=== PATIENT | female | born 1980 | race Caucasian/White ===

== ENCOUNTER 2019-10-22 22:34 | Emergency (ER) | payer SELFPAY ==
[~2019-10-22] VITALS: Ht 160 cm; Wt 82.6 kg
[2019-10-23] LABS: BASOPHILS % (AUTO) 1 % (0-1); EOSINOPHILS # (AUTO) 0.37 x10^3/uL (0-0.4); EOSINOPHILS % (AUTO) 3 % (1-7); LYMPHOCYTES # (AUTO) 3.47 x10^3/uL (1-3.4); LYMPHOCYTES % (AUTO) 31 % (22-44); MD NO; MEAN CORPUSCULAR HEMOGLOBIN 30.5 pg (27.0-34.8); MEAN CORPUSCULAR HGB CONC 33.1 g/dL (32.4-35.8); MEAN PLATELET VOLUME 8.5 fL (7.4-10.4); MONOCYTES # (AUTO) 0.92 x10^3/uL (0.2-0.8); MONOCYTES % (AUTO) 8 % (2-9); NEUTROPHILS % (AUTO) 56 % (42-75); PLATELET COUNT 307 x10^3/uL (130-400); RED BLOOD COUNT 4.64 x10^6/uL (3.82-5.3); RED CELL DISTRIBUTION WIDTH 14.1 % (9.6-15.2)
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
[2019-10-23 00:09] LABS: ALBUMIN 3.4 g/dL (3.4-5.0); ANION GAP 7 mmol/L (5-15); CALCIUM 8.4 mg/dL (8.5-10.1); CHLORIDE 108 mmol/L (98-107); CREATININE 0.93 mg/dL (0.55-1.02)
[2019-10-23 00:12] LABS: MICROSCOPIC INDICATED
--- NOTE | 2019-10-23 00:48 | NUR ---
PT TO US VIA GURINGRID, NO CHANGE IN CONDITION. WCTM.
--- NOTE | 2019-10-23 01:20 | NUR ---
LATE ENTRY: PT AMBULATED TO AND FROM RESTROOM WITH A SMOOTH AND STEADY GAIT, NAD, VSS. WCTM. WAITING FOR US READ.
[2019-10-23] MEDS ORDERED: IBUPROFEN 200 MG TABLET PO ONE (02:00)
[2019-10-23] MEDS ORDERED: IBUPROFEN 600 MG TABLET ONE (02:12)
[2019-10-23 02:15] VITALS: BP 138/79
--- NOTE | 2019-10-23 02:17 | NUR ---
PT MEDICATED PER MAY. NAD, VSS, PLAYING ON PHONE, NO OTHER CHANGES IN CONDITION, WCTM. WAITING FOR ADDITIONAL ORDERS OR DISPO.
--- NOTE | 2019-10-23 02:40 | NUR ---
LATE ENTRY: Patient given discharge instructions and they have confirmed that they understand the instructions. Patient ambulatory with steady gait. DENIES ADDITIONAL NEEDS OR QUESTIONS. STATES PAIN IS DECREASED, NAD, VSS. NO PT BELONGINGS LEFT IN ROOM AFTER DC.
== END 2019-10-23 03:07 | disposition home or self-care (01) ==
LOC: ED 10-23 00:09
DX: N92.4 Excessive bleeding in the premenopausal period (principal); N93.8 Other specified abnormal uterine and vaginal bleeding; H92.01 Otalgia, right ear; K02.9 Dental caries, unspecified; F17.210 Nicotine dependence, cigarettes, uncomplicated
CPT/HCPCS: 36415; 76830; 80048; 81001; 82040; 84703; 85025; 87086; 99406